=== PATIENT | female | born 1970 | race African-American/Black ===

== ENCOUNTER 2018-05-30 15:39 | Inpatient (IN) | payer MEDICAID, OTHER ==
[~2018-05-30] VITALS: Ht 165.1 cm; Wt 91.7 kg
[2018-05-30 19:28] LABS: Basophils # (auto) 0 uL; Basophils % (auto) 0.3 % (0.0-2.0); Eosinophils # (auto) 0.4 uL; Eosinophils % (auto) 6.2 % (0.0-7.0); Hematocrit 35.6 % (36.0-46.0); Hemoglobin 11.7 g/dL (12.2-16.2); Lymphocytes # (auto) 2.1 uL; Lymphocytes % (auto) 33.9 % (10.0-50.0); Mean Corpuscular Hemoglobin 28.4 pg (28.0-32.0); Mean Corpuscular Hgb Conc. 32.8 g/dL (32.0-36.0); Mean Corpuscular Volume 86.8 fL (80.0-100.0); Monocytes # (auto) 0.4 uL; Monocytes % (auto) 6.6 % (0.0-12.0); Neutrophils # (auto) 3.3 uL; Platelet Count (auto) 259 10^3/uL (140-450); Red Cell Distribution Width 18.2 % (11.8-14.3); White Blood Cell 6.2 10^3/uL (4.4-10.8)
[2018-05-30 19:49] LABS: Albumin 3.2 g/dL (3.4-5.0); BUN/Creatinine Ratio 10.9; Calcium 8.7 mg/dL (8.5-10.1); Potassium 4.4 mmol/L (3.5-5.1)
[2018-05-30 19:52] LABS: Bilirubin, Total 0.2 mg/dL (0.2-1.0); Total Protein 7.7 g/dL (6.4-8.2)
[2018-05-30] MEDS ORDERED: VANCOMYCIN 1GM/250ML 250 ML IV ONE (20:15)
[2018-05-30] MEDS ORDERED: cefTRIAXone 1GM/10ml IVPUSH 10 ML IV ONE (20:15)
[2018-05-31] VITALS (7 sets, daily range): BP systolic 112–151; BP diastolic 63–85
[2018-05-31] MEDS ORDERED: TEMAZEPAM 15 MG CAP PO PRN (01:45)
[2018-05-31] MEDS ORDERED: VANCOMYCIN PER PHARMACY 0 MG IV SCH (01:45)
[2018-05-31] MEDS ORDERED: ACETAMINOPHEN 500 MG TAB PO PRN (01:45)
[2018-05-31] MEDS ORDERED: MORPHINE SULF INJ 2 MG/ML SYRINGE 1ML IV PRN (01:45)
[2018-05-31] MEDS: HYDROcodone-ACET 5/325MG TAB PO PRN ×5 (05:01→22:26)
[2018-05-31] MEDS ORDERED: IBUP800T24 PO (05:07)
[2018-05-31] MEDS ORDERED: CHOL20007 PO (05:07)
[2018-05-31] MEDS ORDERED: SIMV10TA73 PO (05:07)
[2018-05-31] MEDS ORDERED: AML5T PO (05:07)
[2018-05-31] MEDS: amLODIPine BESYLATE 5 MG TAB PO SCH (09:19)
[2018-05-31 10:35] LABS: Basophils # (auto) 0 uL; Eosinophils # (auto) 0.3 uL; Hematocrit 34.1 % (36.0-46.0); Hemoglobin 11.2 g/dL (12.2-16.2); Lymphocytes # (auto) 1.8 uL; Lymphocytes % (auto) 35.7 % (10.0-50.0); Mean Corpuscular Hemoglobin 28.6 pg (28.0-32.0); Mean Corpuscular Hgb Conc. 32.8 g/dL (32.0-36.0); Mean Corpuscular Volume 87.1 fL (80.0-100.0); Monocytes # (auto) 0.3 uL; Monocytes % (auto) 6.7 % (0.0-12.0); Neutrophils # (auto) 2.4 uL; Neutrophils % (auto) 49.6 % (37.0-80.0); Nucleated Red Blood Cells % 0.1 %; Platelet Count (auto) 241 10^3/uL (140-450); Red Blood Cells 3.92 10^6/uL (4.0-5.20); Red Cell Distribution Width 18.4 % (11.8-14.3); White Blood Cell 4.9 10^3/uL (4.4-10.8)
[2018-05-31 10:57] LABS: Anion Gap 6 (5-15); BUN/Creatinine Ratio 10.7; Blood Urea Nitrogen 6 mg/dL (7-18); Calcium 8.3 mg/dL (8.5-10.1); Carbon Dioxide 26 mmol/L (21-32); Chloride 105 mmol/L (98-107); GFR African American 149 mL/min; GFR Non-African American 123 mL/min; Glucose 92 mg/dL (74-106); Potassium 3.7 mmol/L (3.5-5.1); Sodium 137 mmol/L (136-145)
[2018-05-31 11:28] LABS: Alkaline Phosphatase 130 U/L (45-117); Aspartate Aminotransferase 20 U/L (15-37)
[2018-05-31 11:29] LABS: Alanine Aminotransferase 21 U/L (13-56); Albumin 2.8 g/dL (3.4-5.0); Bilirubin, Direct < 0.1 mg/dL (0-0.2); Bilirubin, Total 0.2 mg/dL (0.2-1.0); Total Protein 7.1 g/dL (6.4-8.2)
[2018-05-31] MEDS ORDERED: CHOLECALCIFEROL (VITD3) 1,000 UNIT TAB PO ONE (12:00)
[2018-05-31] MEDS: VANCOMYCIN 1,250 MG in D5W 5% 250 ML IV SCH (12:45)
[2018-05-31 14:04] LABS: Urine Bacteria NONE SEEN /hpf (None Seen); Urine Blood Negative /uL (Negative); Urine Specific Gravity 1.008 (1.001-1.035); Urine WBC 2 /hpf (0 - 5)
[2018-05-31 14:19] LABS: Alcohol, Urine < 3.0 mg/dL (0-5); Amphetamine Screen, Urine NEGATIVE (NEGATIVE); Barbiturate Scree,Urine NEGATIVE (NEGATIVE); Benzodiazephine Screen, Urine NEGATIVE (NEGATIVE); Cannabinoid Screen, Urine NEGATIVE (NEGATIVE); Cocaine Screen, Urine NEGATIVE (NEGATIVE); Opiate Scree,Urine NEGATIVE (NEGATIVE); Phencyclidine Screen, Urine NEGATIVE (NEGATIVE)
[2018-06-01] MEDS: VANCOMYCIN 1,250 MG in D5W 5% 250 ML IV SCH ×3 (00:07→23:58)
[2018-06-01 05:00] VITALS: BP 134/80
[2018-06-01 05:09] LABS: Albumin 2.7 g/dL (3.4-5.0); BUN/Creatinine Ratio 9.8; Calcium 8.5 mg/dL (8.5-10.1); Potassium 3.7 mmol/L (3.5-5.1)
[2018-06-01 05:12] LABS: Bilirubin, Total 0.3 mg/dL (0.2-1.0); Total Protein 6.9 g/dL (6.4-8.2)
[2018-06-01 08:00] VITALS: BP 109/61
[2018-06-01 08:36] VITALS: BP 109/61
[2018-06-01] MEDS: HYDROcodone-ACET 5/325MG TAB PO PRN ×3 (10:15→20:36)
[2018-06-01] MEDS: FLUCONAZOLE 100 MG TAB PO SCH (11:01)
[2018-06-01] MEDS: amLODIPine BESYLATE 5 MG TAB PO SCH (11:01)
[2018-06-01] MEDS: CHOLECALCIFEROL (VITD3) 1,000 UNIT TAB PO SCH (11:02)
[2018-06-01] MEDS: DAKINS QUARTER STR 0.125% (NaHypochlorite) 473 ML TOPICAL SOL TOP SCH (11:02)
[2018-06-01] MEDS: SILVER SULFADIAZINE 1 % TOPICAL CREAM 50GM TOP SCH ×2 (11:03→21:58)
[2018-06-01 13:20] VITALS: BP 143/84
[2018-06-01 16:55] VITALS: BP 125/71
[2018-06-01] MEDS: Pro-Stat SF 30ml Vanilla PO SCH (18:00)
[2018-06-01] MEDS: ASCORBIC ACID 500 MG TAB PO SCH (21:58)
[2018-06-01 22:00] VITALS: BP 111/57
[2018-06-02 05:00] VITALS: BP 118/71
[2018-06-02 08:00] VITALS: BP 134/82
[2018-06-02] MEDS: Pro-Stat SF 30ml Vanilla PO SCH ×2 (08:07→18:00)
[2018-06-02] MEDS: ONDANSETRON HCL 4 MG/2 ML VIAL IV PRN (08:07)
[2018-06-02] MEDS: HYDROcodone-ACET 5/325MG TAB PO PRN ×4 (08:08→21:06)
[2018-06-02] MEDS: amLODIPine BESYLATE 5 MG TAB PO SCH (10:24)
[2018-06-02] MEDS: MULTIPLE VITAMINS W/ MINERALS TAB PO SCH (10:24)
[2018-06-02] MEDS: FLUCONAZOLE 100 MG TAB PO SCH (10:24)
[2018-06-02] MEDS: SILVER SULFADIAZINE 1 % TOPICAL CREAM 50GM TOP SCH ×2 (10:25→21:40)
[2018-06-02] MEDS: ASCORBIC ACID 500 MG TAB PO SCH ×2 (10:25→21:39)
[2018-06-02] MEDS: CHOLECALCIFEROL (VITD3) 1,000 UNIT TAB PO SCH (10:25)
[2018-06-02] MEDS: DAKINS QUARTER STR 0.125% (NaHypochlorite) 473 ML TOPICAL SOL TOP SCH (10:25)
[2018-06-02 12:00] VITALS: BP 110/74
[2018-06-02] MEDS: VANCOMYCIN 1,250 MG in D5W 5% 250 ML IV SCH (12:10)
[2018-06-02 16:00] VITALS: BP 126/70
[2018-06-02 20:00] VITALS: BP 127/74
[2018-06-02 22:00] VITALS: BP 127/74
[2018-06-03] MEDS: VANCOMYCIN 1,250 MG in D5W 5% 250 ML IV SCH ×2 (00:33→12:08)
[2018-06-03 05:04] VITALS: BP 109/58
[2018-06-03] MEDS: HYDROcodone-ACET 5/325MG TAB PO PRN ×2 (07:20→19:06)
[2018-06-03 08:05] VITALS: BP 110/75
[2018-06-03] MEDS: MULTIPLE VITAMINS W/ MINERALS TAB PO SCH (09:20)
[2018-06-03] MEDS: CHOLECALCIFEROL (VITD3) 1,000 UNIT TAB PO SCH (09:20)
[2018-06-03] MEDS: ASCORBIC ACID 500 MG TAB PO SCH ×2 (09:21→22:20)
[2018-06-03] MEDS: FLUCONAZOLE 100 MG TAB PO SCH (09:21)
[2018-06-03] MEDS: amLODIPine BESYLATE 5 MG TAB PO SCH (09:22)
[2018-06-03] MEDS: SILVER SULFADIAZINE 1 % TOPICAL CREAM 50GM TOP SCH ×2 (09:24→22:21)
[2018-06-03] MEDS: DAKINS QUARTER STR 0.125% (NaHypochlorite) 473 ML TOPICAL SOL TOP SCH (09:24)
[2018-06-03] MEDS: Pro-Stat SF 30ml Vanilla PO SCH ×2 (09:25→19:05)
[2018-06-03 13:06] VITALS: BP 130/77
[2018-06-03] MEDS: AMOXICILLIN TRIHYDRATE 250 MG CAP PO SCH ×2 (14:37→22:20)
[2018-06-03 16:30] VITALS: BP 119/68
[2018-06-03 20:00] VITALS: BP 130/80
[2018-06-03 22:00] VITALS: BP 130/80
[2018-06-04] MEDS: HYDROcodone-ACET 5/325MG TAB PO PRN ×4 (00:49→22:23)
[2018-06-04 05:00] VITALS: BP 109/77
[2018-06-04] MEDS: AMOXICILLIN TRIHYDRATE 250 MG CAP PO SCH ×3 (06:40→22:23)
[2018-06-04 07:05] LABS: Basophils # (auto) 0 uL; Basophils % (auto) 0.6 % (0.0-2.0); Eosinophils # (auto) 0.3 uL; Hematocrit 34.9 % (36.0-46.0); Hemoglobin 11.6 g/dL (12.2-16.2); Lymphocytes # (auto) 1.7 uL; Lymphocytes % (auto) 38.7 % (10.0-50.0); Mean Corpuscular Hemoglobin 28.7 pg (28.0-32.0); Mean Corpuscular Hgb Conc. 33.2 g/dL (32.0-36.0); Mean Corpuscular Volume 86.4 fL (80.0-100.0); Monocytes # (auto) 0.4 uL; Monocytes % (auto) 10.4 % (0.0-12.0); Neutrophils # (auto) 1.8 uL; Neutrophils % (auto) 43.3 % (37.0-80.0); Nucleated Red Blood Cells % 0.1 %; Platelet Count (auto) 261 10^3/uL (140-450); Red Blood Cells 4.04 10^6/uL (4.0-5.20); Red Cell Distribution Width 17.9 % (11.8-14.3); White Blood Cell 4.3 10^3/uL (4.4-10.8)
[2018-06-04 07:12] LABS: BUN/Creatinine Ratio 21.7; Calcium 9.1 mg/dL (8.5-10.1); Potassium 4.6 mmol/L (3.5-5.1)
[2018-06-04] MEDS: FLUCONAZOLE 100 MG TAB PO SCH (09:42)
[2018-06-04] MEDS: MULTIPLE VITAMINS W/ MINERALS TAB PO SCH (09:42)
[2018-06-04] MEDS: ASCORBIC ACID 500 MG TAB PO SCH ×2 (09:42→22:22)
[2018-06-04] MEDS: amLODIPine BESYLATE 5 MG TAB PO SCH (09:43)
[2018-06-04] MEDS: CHOLECALCIFEROL (VITD3) 1,000 UNIT TAB PO SCH (09:43)
[2018-06-04] MEDS: Pro-Stat SF 30ml Vanilla PO SCH ×2 (09:44→17:37)
[2018-06-04] MEDS: DAKINS QUARTER STR 0.125% (NaHypochlorite) 473 ML TOPICAL SOL TOP SCH (09:45)
[2018-06-04] MEDS: SILVER SULFADIAZINE 1 % TOPICAL CREAM 50GM TOP SCH ×2 (09:45→22:24)
[2018-06-04] MEDS: ONDANSETRON HCL 4 MG/2 ML VIAL IV PRN (09:55)
[2018-06-04 10:11] VITALS: BP 124/73
[2018-06-04 13:06] VITALS: BP 121/67
[2018-06-04 17:51] VITALS: BP 102/55
[2018-06-04] MEDS ORDERED: CIPROFLOXACIN HCL 500 MG TAB PO ONE (18:45)
[2018-06-04 20:00] VITALS: BP 120/68
[2018-06-04 22:00] VITALS: BP 120/68
[2018-06-05 05:00] VITALS: BP 114/67
[2018-06-05] MEDS: AMOXICILLIN TRIHYDRATE 250 MG CAP PO SCH (06:02)
[2018-06-05] MEDS: HYDROcodone-ACET 5/325MG TAB PO PRN (07:12)
[2018-06-05] MEDS: Pro-Stat SF 30ml Vanilla PO SCH (08:00)
[2018-06-05 08:22] VITALS: BP_SYST 102; BP_SYST 111; BP_DIAS 54; BP_DIAS 66
[2018-06-05] MEDS ORDERED: CIPROFLOXACIN HCL 500 MG TAB PO SCH (10:00)
[2018-06-05] MEDS: ASCORBIC ACID 500 MG TAB PO SCH (10:13)
[2018-06-05] MEDS: CHOLECALCIFEROL (VITD3) 1,000 UNIT TAB PO SCH (10:13)
[2018-06-05] MEDS: amLODIPine BESYLATE 5 MG TAB PO SCH (10:13)
[2018-06-05] MEDS: FLUCONAZOLE 100 MG TAB PO SCH (10:14)
[2018-06-05] MEDS: MULTIPLE VITAMINS W/ MINERALS TAB PO SCH (10:14)
[2018-06-05 11:45] VITALS: BP 106/62
[2018-06-05 12:56] VITALS: BP 106/62
[2018-06-05] MEDS ORDERED: CLOTRIMAZOLE 1 % CREAM 15GM TOP SCH (22:00)
== END 2018-06-05 13:30 | disposition home or self-care (01) | DRG 383 ==
LOC: ER 15:50 → OVERFLOW 15:51 → WEST WING 05-31 04:20
PROVIDERS: ADMIT Nurse Practitioner Family; ATTEND Internal Medicine
DX: L03.116 Cellulitis of left lower limb (principal); L97.529 Non-pressure chronic ulcer of other part of left foot with unspecified severity; B35.3 Tinea pedis; F17.210 Nicotine dependence, cigarettes, uncomplicated; B96.4 Proteus (mirabilis) (morganii) as the cause of diseases classified elsewhere; B35.1 Tinea unguium; I10 Essential (primary) hypertension; S90.829A Blister (nonthermal), unspecified foot, initial encounter; Z82.49 Family history of ischemic heart disease and other diseases of the circulatory system; X58.XXXA Exposure to other specified factors, initial encounter; Z83.3 Family history of diabetes mellitus; Z85.41 Personal history of malignant neoplasm of cervix uteri; Z84.1 Family history of disorders of kidney and ureter; Z79.899 Other long term (current) drug therapy; Y93.89 Activity, other specified; Y92.89 Other specified places as the place of occurrence of the external cause
CPT/HCPCS: 36415; 73700; 80048; 80053; 80076; 80202; 80307; 81001; 82962; 83036; 85025; 85379; 87040; 87077; 87186; 87205; 93923; 96365; 96375; J0696; J2405; J7060

== ENCOUNTER 2018-07-16 00:14 | Emergency (ER) | payer OTHER ==
[~2018-07-16] VITALS: Ht 165.1 cm; Wt 89.8 kg
[~2018-07-16 00:14] MED LIST: AML5T PO; CHOL20007 PO; IBUP800T24 PO; SIMV10TA73 PO
[2018-07-16 00:17] VITALS: BP 136/86
[2018-07-16] MEDS ORDERED: MEPERIDINE HCL (50 MG/ML) 1 ML VIAL IM ONE (03:30)
== END 2018-07-16 04:01 | disposition home or self-care (01) ==
LOC: EDBD 00:14 → ER 00:14 → EDSEX 00:14 → ER 03:57
DX: G43.909 Migraine, unspecified, not intractable, without status migrainosus (principal); E78.5 Hyperlipidemia, unspecified; I10 Essential (primary) hypertension; F17.210 Nicotine dependence, cigarettes, uncomplicated; Z79.899 Other long term (current) drug therapy
CPT/HCPCS: 96372; 99283; J2175